=== PATIENT | male | born 1980 | race Caucasian/White ===

== ENCOUNTER 2018-06-10 16:59 | Emergency (ER) | payer OTHER ==
[~2018-06-10] VITALS: Ht 193 cm; Wt 111.1 kg
[~2018-06-10 16:59] MED LIST: ALBU90OI INH; CEPH500 PO; CIPR500 PO; Cipro500 MG PO; Crutch1 EACH MISC; IBUP800 PO; LEVE500 PO; NAPR550 PO; Norco 5-325 Ta1 EACH PO; PERM5TC TOP; PHENA200 PO; Percocet 10-321 EACH PO; Zofran Odt4 MG SL
== END 2018-06-10 20:11 | disposition home or self-care (01) ==
LOC: ER 16:59
DX: M79.641 Pain in right hand (principal); M25.552 Pain in left hip; J45.909 Unspecified asthma, uncomplicated; F17.200 Nicotine dependence, unspecified, uncomplicated; Z79.51 Long term (current) use of inhaled steroids
CPT/HCPCS: 29125; 73130; 73502; 99283-25; L3917

== ENCOUNTER 2019-06-13 11:27 | Emergency (ER) | payer OTHER ==
[~2019-06-13] VITALS: Ht 185.4 cm; Wt 103.9 kg
[2019-06-13] MEDS ORDERED: Norco 5-325 Ta1 EACH PO (13:00)
== END 2019-06-13 13:33 | disposition home or self-care (01) ==
LOC: ER 11:27
DX: S69.91XA Unspecified injury of right wrist, hand and finger(s), initial encounter (principal); F17.210 Nicotine dependence, cigarettes, uncomplicated; Z88.6 Allergy status to analgesic agent; J45.909 Unspecified asthma, uncomplicated; W23.0XXA Caught, crushed, jammed, or pinched between moving objects, initial encounter
CPT/HCPCS: 29125; 73130; 99283-25; A9270-GY

== ENCOUNTER 2020-07-17 16:16 | Emergency (ER) | payer OTHER ==
[~2020-07-17] VITALS: Ht 185.4 cm; Wt 110.2 kg
[2020-07-17] MEDS ORDERED: IBUP800 PO (17:06)
== END 2020-07-17 20:58 | disposition home or self-care (01) ==
LOC: ER 16:16
DX: N50.3 Cyst of epididymis (principal); J45.909 Unspecified asthma, uncomplicated; Z88.6 Allergy status to analgesic agent; Z79.899 Other long term (current) drug therapy
CPT/HCPCS: 76870; 99284-25

== ENCOUNTER 2021-01-27 10:12 | Emergency (ER) | payer OTHER ==
[~2021-01-27] VITALS: Ht 185.4 cm; Wt 116.6 kg
[2021-01-27] MEDS ORDERED: Percocet 5-3251 EACH PO (11:26)
== END 2021-01-27 11:32 | disposition home or self-care (01) ==
LOC: ER 10:12
DX: M25.552 Pain in left hip (principal); J45.909 Unspecified asthma, uncomplicated; F17.210 Nicotine dependence, cigarettes, uncomplicated; Z79.899 Other long term (current) drug therapy; Z88.6 Allergy status to analgesic agent
CPT/HCPCS: 73502; 99283-25; A9270

== ENCOUNTER → 2023-02-23 | Outpatient (CLI) | payer OTHER ==
[~2023-02-23] MED LIST changes: +AMOCLA875 PO; +Aspir 8181 MG PO; +BACITO TOP; +CYCL10 PO; +HYDR1TAB94 PO; +IBUP600 PO; +MELO7.5; +MELO7.5 PO; +MORP15ER PO; +PRED20 PO; +Percocet 5-3251 EACH PO; +TAMSULOSIN HCL0.4 M1 PO
[2023-03-02 17:07] LABS: COTININE <10.0 ng/mL (.); NICOTINE <10.0 ng/mL (.)
== END ==
LOC: LAB 15:25 → LAB SHORT 15:25
PROVIDERS: Family Medicine
DX: G56.01 Carpal tunnel syndrome, right upper limb (principal)
CPT/HCPCS: G0480